=== PATIENT | male | born 1985 ===

== ENCOUNTER 2018-02-28 02:21 | Emergency (ER) | payer OTHER ==
--- NOTE | 2018-02-28 02:31 | C.PDOC ---
History Of Present Illness 32 year old male is brought in by EMS for alcohol intoxication. Patient denies SI/HI, hallucinations, CP, SOB, injury, fall, trauma. Time Seen by Provider: 02/28/18 02:30 History Per: Patient, EMS History/Exam Limitations: intoxication Onset/Duration Of Symptoms: Days Current Symptoms Are (Timing): Still Present Suicide/Self Injury Attempted (Context): None Modifying Factor(s): Alcohol Associated Symptoms: denies: Depression, Suicidal Thoughts, Suicidal Plan Recent travel outside of the [place]: No Additional History Per: Patient Past Medical History Reviewed: Historical Data, Nursing Documentation, Vital Signs - Medical History PMH: Depression, Fractures (Right Leg (rt foot/ankle)), HTN Denies: HIV, Chronic Kidney Disease, Seizures, Sexually Transmitted Disease Surgical History: No Surg Hx - [facility] Procedures CLOSURE SKIN & SUBCUTANEOUS NEC (10/13/13) LINEAR REP LID LACER (10/13/13) REPLAC M/S IMMOB DEV NEC (12/12/14) Family History: States: Unknown Family Hx - Social History Hx Tobacco Use: Yes (light smoker) Hx Alcohol Use: Yes Hx Substance Use: Yes (PCP) - Immunization History Hx Tetanus Toxoid Vaccination: No (unknown) Hx Influenza Vaccination: No (UTO) Hx Pneumococcal Vaccination: No (UTO) Review Of Systems Constitutional: Negative for: Fever, Chills Cardiovascular: Negative for: Chest Pain Respiratory: Negative for: Cough, Shortness of Breath Gastrointestinal: Negative for: Nausea, Vomiting, Abdominal Pain Skin: Negative for: Rash Psych: Negative for: Depression, Suicidal ideation Physical Exam - Physical Exam Appears: Non-toxic, No Acute Distress Skin: Warm, Dry Head: Normacephalic Eye(s): bilateral: Normal Inspection Oral Mucosa: Moist Neck: Supple Chest: Symmetrical Cardiovascular: Rhythm Regular Respiratory: No Rales, No Rhonchi, No Wheezing Gastrointestinal/Abdominal: Soft, No Tenderness, No Guarding, No Rebound Extremity: Bilateral: Atraumatic, Normal Color And Temperature, Normal ROM Neurological/Psych: Oriented x3, Normal Speech, Normal Cognition Gait: Steady ED Course And Treatment Pulse Ox Interpretation: Normal Reevaluation Time: 05:09 Reassessment Condition: Improved Disposition Counseled Patient/Family Regarding: Studies Performed, Diagnosis, Need For Followup - Disposition Referrals: [facility] [Outside] Disposition: HOME/ ROUTINE Disposition Time: 02:30 Condition: FAIR Instructions: Alcohol Abuse and Alcoholism (DC) - Clinical Impression Clinical Impression: Substance abuse - Scribe Statement The provider has reviewed the documentation as recorded by the Scribe Oneil Toledo All medical record entries made by the Scribe were at my direction and personally dictated by me. I have reviewed the chart and agree that the record accurately reflects my personal performance of the history, physical exam, medical decision making, and the department course for this patient. I have also personally directed, reviewed, and agree with the discharge instructions and disposition.
[2018-02-28 02:49] VITALS: BP 142/82; PULSE 100; RESP 22; TEMP 97.4; O2SAT 99
== END 2018-02-28 05:20 | disposition home or self-care (01) ==
LOC: MERGE 02:21 → C.ER 02:21
DX: F10.10 Alcohol abuse, uncomplicated (principal); Y90.9 Presence of alcohol in blood, level not specified

== ENCOUNTER 2018-03-03 03:39 | Emergency (ER) | payer OTHER ==
[2018-03-03 04:17] VITALS: BP 128/76; PULSE 82; RESP 20; TEMP 98; O2SAT 98
== END 2018-03-03 04:10 | disposition left against medical advice (07) ==
LOC: C.ER 03:39 → MERGE 03:39 → C.ER 04:10
DX: Z02.89 Encounter for other administrative examinations (principal); M25.579 Pain in unspecified ankle and joints of unspecified foot

== ENCOUNTER 2018-03-14 12:26 | Emergency (ER) | payer MEDICAID, OTHER ==
[2018-03-14 12:33] VITALS: O2SAT 100
--- NOTE | 2018-03-14 13:27 | C.PDOC ---
History Of Present Illness 32 y/o male BIBA for evaluation of public intoxication after he was found vomiting on the street. Patient admits that he was drinking ETOH. Patient denies having suicidal ideation, homicidal ideation, and active physical complaints. Time Seen by Provider: 03/14/18 12:44 Chief Complaint (Nursing): Substance Abuse History Per: Patient History/Exam Limitations: no limitations Past Medical History Reviewed: Historical Data, Nursing Documentation, Vital Signs Vital Signs: Last Vital Signs Temp 98.7 F 03/14/18 12:30 Pulse 86 03/14/18 12:30 Resp 14 03/14/18 12:30 BP 158/64 H 03/14/18 12:30 Pulse Ox 100 03/14/18 12:30 - Medical History PMH: Depression, Fractures (Right Leg (rt foot/ankle)) Denies: Diabetes, Hepatitis, HIV, HTN, Chronic Kidney Disease, Seizures, Sexually Transmitted Disease Other Surgeries: Hx of surgeries - [facility] Procedures CLOSURE SKIN & SUBCUTANEOUS NEC (10/13/13) LINEAR REP LID LACER (10/13/13) REPLAC M/S IMMOB DEV NEC (12/12/14) Family History: States: No Known Family Hx - Social History Hx Tobacco Use: Yes (light smoker) Hx Alcohol Use: Yes Hx Substance Use: Yes - Immunization History Hx Tetanus Toxoid Vaccination: No (unknown) Hx Influenza Vaccination: No (UTO) Hx Pneumococcal Vaccination: No (UTO) Review Of Systems Except As Marked, All Systems Reviewed And Found Negative. Constitutional: Negative for: Fever, Chills Gastrointestinal: Negative for: Nausea, Vomiting, Abdominal Pain Physical Exam - Physical Exam Appears: No Acute Distress, Other (resting comfortably) Skin: Normal Color, Warm, Dry Head: Atraumatic, Normacephalic Eye(s): bilateral: Normal Inspection Nose: Normal Oral Mucosa: Moist, Other (ETOH on breath) Neck: Supple Chest: Symmetrical Cardiovascular: Rhythm Regular Respiratory: Normal Breath Sounds, No Rales, No Rhonchi, No Wheezing Gastrointestinal/Abdominal: Soft, No Tenderness, No Guarding, No Rebound Neurological/Psych: Oriented x3, Normal Speech ED Course And Treatment O2 Sat by Pulse Oximetry: 100 (RA) Pulse Ox Interpretation: Normal Medical Decision Making Medical Decision Making: Assessment: ETOH Intoxication Plan: --Glucose, POC patient awake, ambulating without difficulties, patient discharged home to follow up with pmd within 2 days Disposition Counseled Patient/Family Regarding: Studies Performed, Diagnosis - Disposition Referrals: [facility] [Outside] Disposition: HOME/ ROUTINE Disposition Time: 15:16 Condition: STABLE Additional Instructions: follow up with medical clinic within 2 days call to make an appointment stop drinking return to ER if symptoms worsens or progress Instructions: Alcohol Abuse and Alcoholism (DC) Forms: [facility] (Lao), General Discharge Instructions - Clinical Impression Clinical Impression: Alcohol abuse - Scribe Statement The provider has reviewed the documentation as recorded by the Harshil Bartholomew Provider Attestation: All medical record entries made by the Harshil were at my direction and personally dictated by me. I have reviewed the chart and agree that the record accurately reflects my personal performance of the history, physical exam, medical decision making, and the department course for this patient. I have also personally directed, reviewed, and agree with the discharge instructions and disposition.
[2018-03-14 15:18] VITALS: BP 124/87; PULSE 99; RESP 18; TEMP 97.7
== END 2018-03-14 15:27 | disposition home or self-care (01) ==
LOC: C.ER 12:26
DX: F10.129 Alcohol abuse with intoxication, unspecified (principal); Z87.891 Personal history of nicotine dependence

== ENCOUNTER 2018-03-16 08:56 | Emergency (ER) | payer OTHER ==
[2018-03-16 09:03] VITALS: TEMP 98.4
[2018-03-16] MEDS ORDERED: Sodium Chloride 0.9% 1,000 ML IV ONE (09:32)
[2018-03-16 09:55] LABS: HEMOGLOBIN 12.7 g/dL (12.0-18.0); MEAN CORPUSCULAR HEMOGLOBIN 31.8 pg (27.0-31.0); MEAN CORPUSCULAR HGB CONC 33.4 g/dL (33.0-37.0); RBC 3.98 Mil/uL (4.40-5.90); RED CELL DISTRIBUTION WIDTH 12.9 % (11.5-14.5); WHITE BLOOD COUNT 5.3 K/uL (4.8-10.8)
[2018-03-16 09:56] LABS: BASO % 0.9 % (0.0-2.0); EOS # 0.1 K/uL (0.0-0.7); EOS % 1.3 % (0.0-4.0); LYMPH % 19.6 % (20.0-40.0); MEAN PLATELET VOLUME 7.8 fL (7.2-11.7); MONO # 0.5 K/uL (0.0-0.8); MONO % 9.3 % (0.0-10.0); NEUT # 3.7 K/uL (1.8-7.0); NEUT % 68.9 % (50.0-75.0); NRBC % 0.1 % (0.0-2.0)
[2018-03-16 09:57] LABS: MEAN CELL VOLUME 95.3 fL (80.0-94.0)
--- NOTE | 2018-03-16 10:06 | C.PDOC ---
History Of Present Illness 32 years old male with PMHx of drug abuse is brought to ED by police for bizzare behavior. Patient was brought to ED in hand cuffs but he is calm and cooperative. Patient denies drug use. Time Seen by Provider: 03/16/18 08:59 Chief Complaint (Nursing): Substance Abuse History Per: Patient History/Exam Limitations: no limitations Onset/Duration Of Symptoms: Hrs Current Symptoms Are (Timing): Still Present Suicide/Self Injury Attempted (Context): None Associated Symptoms: denies: Suicidal Thoughts, Suicidal Plan Involuntary Hold By: None Recent travel outside of the [place]: No Past Medical History Reviewed: Historical Data, Nursing Documentation, Vital Signs Vital Signs: Last Vital Signs Temp 98.4 F 03/16/18 09:02 Pulse 92 H 03/16/18 09:02 Resp 15 03/16/18 09:02 BP 136/78 03/16/18 09:02 Pulse Ox 97 03/16/18 09:02 - Medical History PMH: Depression, Fractures (Right Leg (rt foot/ankle)) - [facility] Procedures CLOSURE SKIN & SUBCUTANEOUS NEC (10/13/13) LINEAR REP LID LACER (10/13/13) REPLAC M/S IMMOB DEV NEC (12/12/14) Family History: States: Unknown Family Hx - Social History Hx Tobacco Use: Yes (light smoker) Hx Alcohol Use: Yes Hx Substance Use: Yes - Immunization History Hx Tetanus Toxoid Vaccination: No (unknown) Hx Influenza Vaccination: No (UTO) Hx Pneumococcal Vaccination: No (UTO) Review Of Systems Constitutional: Negative for: Fever, Chills Gastrointestinal: Negative for: Nausea, Vomiting, Abdominal Pain, Diarrhea Skin: Negative for: Rash Neurological: Negative for: Weakness, Numbness Psych: Negative for: Suicidal ideation Physical Exam - Physical Exam Appears: Non-toxic, No Acute Distress, Other (Calm. Cooperative. Lethargic but arousable. ) Skin: Normal Color, Warm, Dry, No Rash Head: Atraumatic, Normacephalic Eye(s): bilateral: Normal Inspection, PERRL, EOMI Oral Mucosa: Moist Neck: Normal ROM, Supple Chest: Symmetrical, No Tenderness Cardiovascular: Rhythm Regular, No Murmur Respiratory: Normal Breath Sounds, No Rales, No Rhonchi, No Wheezing Gastrointestinal/Abdominal: Soft, No Tenderness Extremity: Normal ROM Extremity: Bilateral: Atraumatic, Normal Color And Temperature, Normal ROM Pulses: Left Radial: Normal, Right Radial: Normal Neurological/Psych: Oriented x3, Normal Speech Gait: Steady ED Course And Treatment - Laboratory Results Result Diagrams: 03/16/18 09:52 03/16/18 09:52 O2 Sat by Pulse Oximetry: 97 (RA) Pulse Ox Interpretation: Normal Progress Note: Adminsitered IV Fluids. Ordered blood work and urinalysis. Adelita ent woke up, requesting IV to be removed immediately and left Ed w/o completing his evaluation. 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 - Scribe Statement The provider has reviewed the documentation as recorded by the Scribe Ivet Meeks All medical record entries made by the Scribe were at my direction and personally dictated by me. I have reviewed the chart and agree that the record accurately reflects my personal performance of the history, physical exam, medical decision making, and the department course for this patient. I have also personally directed, reviewed, and agree with the discharge instructions and disposition.
[2018-03-16 10:10] LABS: ALB/GLOB RATIO 1.4 (1.0-2.1); ALBUMIN 4.5 g/dL (3.5-5.0); ALT/SGPT 41 U/L (21-72); AST/SGOT 59 U/L (17-59); BLOOD UREA NITROGEN 12 mg/dL (9-20); CALCIUM 8.9 mg/dl (8.6-10.4); GFR NON-AFRICAN AMERICAN > 60
[2018-03-16 10:40] VITALS: BP 123/65; PULSE 88; RESP 12
[2018-03-16 10:56] LABS: GRANULAR CAST 2 /lpf (0-1); SQUAMOUS EPITHIAL < 1 /hpf (0-5); URINE BACTERIA RARE (<OCC); URINE BILIRUBIN NEGATIVE (NEGATIVE); URINE BLOOD NEGATIVE (NEGATIVE); URINE CLARITY Clear (Clear); URINE COLOR Yellow (YELLOW); URINE GLUCOSE (UA) NORMAL (Normal); URINE LEUKOCYTE ESTERASE NEG Leu/uL (Negative); URINE PROTEIN 2+ mg/dL (NEGATIVE)
[2018-03-16 11:23] LABS: BARBITURATES, UR NEGATIVE (NEGATIVE)
[2018-03-16 11:24] LABS: OPIATES, UR NEGATIVE (NEGATIVE)
[2018-03-16 11:25] LABS: BENZODIAZEPINES, UR POSITIVE (NEGATIVE)
[2018-03-16 11:33] LABS: PHENCYCLIDINE, UR POSITIVE (NEGATIVE)
[2018-03-16 16:18] VITALS: O2SAT 97
== END 2018-03-16 10:20 | disposition left against medical advice (07) ==
LOC: C.ER 08:56
DX: F19.10 Other psychoactive substance abuse, uncomplicated (principal)
CPT/HCPCS: 80053; 80320; 80324; 80345; 80346; 80349; 80353; 80358; 80361; 81001; 82948; 83735; 83992; 84100; 85025; 96360; 99283; J7030

== ENCOUNTER 2018-03-17 14:09 | Emergency (ER) | payer OTHER ==
[2018-03-17 14:31] VITALS: TEMP 98
--- NOTE | 2018-03-17 15:00 | C.PDOC ---
History Of Present Illness The patient presents to the ED for evaluation of left-sided testicular pain which has been present on and off for years. Patient was evaluated in this ED yesterday for intoxication and states they did not check him. Patient admits to taking drugs PCP. Denies recent trauma, fever, chills, abdominal pain, dysuria, penile discharge, rash, testicular swelling. Time Seen by Provider: 03/17/18 14:39 Chief Complaint (Nursing): Male Genitourinary History Per: Patient History/Exam Limitations: no limitations Onset/Duration Of Symptoms: Intermittent Episodes (for several years) Current Symptoms Are (Timing): Still Present Reports Recently: Seen In ED Recent travel outside of the [place]: No Additional History Per: Patient Past Medical History Reviewed: Historical Data, Nursing Documentation, Vital Signs Vital Signs: Last Vital Signs Temp 98 F 03/17/18 14:28 Pulse 77 03/17/18 14:28 Resp 20 03/17/18 14:28 BP 103/68 03/17/18 14:28 Pulse Ox 100 03/17/18 14:28 - Medical History PMH: Depression, Fractures (Right Leg (rt foot/ankle)) Denies: Diabetes, Hepatitis, HIV, HTN, Chronic Kidney Disease, Seizures, Sexually Transmitted Disease Surgical History: No Surg Hx - [facility] Procedures CLOSURE SKIN & SUBCUTANEOUS NEC (10/13/13) LINEAR REP LID LACER (10/13/13) REPLAC M/S IMMOB DEV NEC (12/12/14) Family History: States: Unknown Family Hx - Social History Hx Tobacco Use: Yes (light smoker) Hx Alcohol Use: Yes Hx Substance Use: Yes - Immunization History Hx Tetanus Toxoid Vaccination: No (unknown) Hx Influenza Vaccination: No (UTO) Hx Pneumococcal Vaccination: No (UTO) Review Of Systems Constitutional: Negative for: Fever, Chills Cardiovascular: Negative for: Chest Pain Respiratory: Negative for: Shortness of Breath Gastrointestinal: Negative for: Nausea, Vomiting, Abdominal Pain Genitourinary: Positive for: Scrotal Pain (left sided testicular ). Negative for: Dysuria, Penile Discharge, Other (testicular swelling ) Skin: Negative for: Rash Physical Exam - Physical Exam Appears: Non-toxic, No Acute Distress Skin: Warm, Dry, No Rash Head: No Atraumatic, No Normacephalic Eye(s): bilateral: Normal Inspection Oral Mucosa: Moist Neck: Normal ROM Chest: Symmetrical Cardiovascular: Rhythm Regular, No Murmur Respiratory: Normal Breath Sounds, No Rales, No Rhonchi, No Wheezing Gastrointestinal/Abdominal: Bowel Sounds, Soft, No Tenderness, No Guarding Male Genital: No Testicular Tenderness (or redness), No Testicular Swelling, No Inguinal Tenderness, No Inguinal Swelling, No Scrotal Swelling, Circumcised, No Other (discharge ) Extremity: Bilateral: Atraumatic, Normal Color And Temperature, Normal ROM Neurological/Psych: Oriented x3, Normal Speech Gait: Steady Additional Physical Exam Comments: 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 On exam there was no swelling, tenderness or redness. No signs of torsion or trauma. Prior records reviewed, patient had other visits for similar complaints and normal US. Yesterdays visit had labs and urine done shows normal results, UDS +Benzo and PCP. Motrin given. Patient remained well in no acute distress and ambulatory without signs of discomfort. Disposition Counseled Patient/Family Regarding: Diagnosis, Need For Followup, Rx Given - Disposition Referrals: Татьяна Gonzales MD [Staff Provider] - Disposition: HOME/ ROUTINE Disposition Time: 15:04 Condition: GOOD Additional Instructions: Follow up with your primary medical doctor or clinic in 2-5 days for further evaluation. Take medications as prescribed. Return to the emergency department at any time if symptoms persist or worsen. Prescriptions: Ibuprofen [Motrin] 600 mg PO Q8 #30 tab Instructions: Groin Strain Forms: [facility] (Welsh) - POA Present On Arrival: None - Clinical Impression Clinical Impression: Substance abuse, Chronic groin pain - PA / UNLOADER OPERATOR / Resident Statement MD/DO has reviewed & agrees with the documentation as recorded. - Scribe Statement The provider has reviewed the documentation as recorded by the Harshil Vargas All medical record entries made by the Kashmiribyemi were at my direction and personally dictated by me. I have reviewed the chart and agree that the record accurately reflects my personal performance of the history, physical exam, medical decision making, and the department course for this patient. I have also personally directed, reviewed, and agree with the discharge instructions and disposition.
[2018-03-17 15:52] VITALS: BP 110/72; PULSE 78; RESP 18
[2018-03-17 18:42] VITALS: O2SAT 100
== END 2018-03-17 15:52 | disposition home or self-care (01) ==
LOC: C.ER 14:09
DX: F19.10 Other psychoactive substance abuse, uncomplicated (principal); R10.30 Lower abdominal pain, unspecified

== ENCOUNTER 2018-03-22 21:24 | Emergency (ER) | payer OTHER ==
--- NOTE | 2018-03-22 21:45 | C.PDOC ---
History Of Present Illness 32 year old male is brought to the ED by EMS for public intoxication. Patient admits to using PCP and alcohol today. Patient denies SI/HI, hallucinations, CP, SOB, injury, fall, trauma. Time Seen by Provider: 03/22/18 21:45 Chief Complaint (Nursing): Substance Abuse History Per: Patient, EMS History/Exam Limitations: intoxication Onset/Duration Of Symptoms: Hrs Current Symptoms Are (Timing): Still Present Suicide/Self Injury Attempted (Context): None Modifying Factor(s): Alcohol, Narcotics Associated Symptoms: denies: Depression, Suicidal Thoughts, Suicidal Plan Recent travel outside of the [place]: No Additional History Per: Patient, EMS Past Medical History Reviewed: Historical Data, Nursing Documentation, Vital Signs - Medical History PMH: Depression, Fractures (Right Leg (rt foot/ankle)) Denies: Diabetes, Hepatitis, HIV, HTN, Chronic Kidney Disease, Seizures, Sexually Transmitted Disease Surgical History: No Surg Hx - [facility] Procedures CLOSURE SKIN & SUBCUTANEOUS NEC (10/13/13) LINEAR REP LID LACER (10/13/13) REPLAC M/S IMMOB DEV NEC (12/12/14) Family History: States: Unknown Family Hx - Social History Hx Tobacco Use: Yes (light smoker) Hx Alcohol Use: Yes Hx Substance Use: Yes - Immunization History Hx Tetanus Toxoid Vaccination: No (unknown) Hx Influenza Vaccination: No (UTO) Hx Pneumococcal Vaccination: No (UTO) Review Of Systems Constitutional: Negative for: Fever, Chills Respiratory: Negative for: Cough, Shortness of Breath Gastrointestinal: Negative for: Nausea, Vomiting, Abdominal Pain Skin: Negative for: Rash Psych: Negative for: Depression, Suicidal ideation Physical Exam - Physical Exam Appears: Non-toxic, No Acute Distress Skin: Warm, Dry Head: Normacephalic Eye(s): bilateral: Normal Inspection Neck: Supple Chest: Symmetrical Cardiovascular: Rhythm Regular Respiratory: No Rales, No Rhonchi, No Wheezing Gastrointestinal/Abdominal: Soft, No Tenderness, No Guarding, No Rebound Extremity: Bilateral: Atraumatic, Normal Color And Temperature, Normal ROM Neurological/Psych: Oriented x3, Normal Speech, Normal Cognition Gait: Steady ED Course And Treatment O2 Sat by Pulse Oximetry: 99 Pulse Ox Interpretation: Normal Reevaluation Time: 04:46 Reassessment Condition: Improved Disposition Counseled Patient/Family Regarding: Studies Performed, Diagnosis, Need For Followup - Disposition Referrals: [facility] [Outside] Disposition: HOME/ ROUTINE Disposition Time: 21:45 Condition: FAIR Instructions: Polysubstance Abuse (DC) Forms: [facility] (Macanese) - Clinical Impression Clinical Impression: Substance abuse - Scribe Statement The provider has reviewed the documentation as recorded by the Scribe Oneil Toledo All medical record entries made by the Scribe were at my direction and personally dictated by me. I have reviewed the chart and agree that the record accurately reflects my personal performance of the history, physical exam, medical decision making, and the department course for this patient. I have also personally directed, reviewed, and agree with the discharge instructions and disposition.
[2018-03-23 04:59] VITALS: BP 108/66; PULSE 87; RESP 18; TEMP 97.9; O2SAT 97
== END 2018-03-23 05:01 | disposition home or self-care (01) ==
LOC: C.ER 21:24
DX: F19.10 Other psychoactive substance abuse, uncomplicated (principal); F17.210 Nicotine dependence, cigarettes, uncomplicated

== ENCOUNTER 2018-04-15 22:25 | Emergency (ER) | payer SELFPAY ==
[2018-04-15 22:38] VITALS: RESP 20
--- NOTE | 2018-04-15 23:05 | C.PDOC ---
History Of Present Illness 32 year old male is brought to the ED by EMS for public intoxication. Patient with many prior evaluation for the same presentation. Patient denies SI/HI, hallucinations, injury, fall, trauma. Time Seen by Provider: 04/15/18 23:01 Chief Complaint (Nursing): Substance Abuse History Per: Patient, EMS History/Exam Limitations: intoxication Onset/Duration Of Symptoms: Hrs Current Symptoms Are (Timing): Still Present Suicide/Self Injury Attempted (Context): None Modifying Factor(s): Alcohol Associated Symptoms: denies: Depression, Suicidal Thoughts, Suicidal Plan Recent travel outside of the [place]: No Additional History Per: Patient, EMS Past Medical History Reviewed: Historical Data, Nursing Documentation, Vital Signs Vital Signs: Last Vital Signs Temp 98.3 F 04/15/18 22:36 Pulse 80 04/15/18 22:36 Resp 20 04/15/18 22:36 BP 121/75 04/15/18 22:36 Pulse Ox 98 04/15/18 22:36 - Medical History PMH: Depression, Fractures (Right Leg (rt foot/ankle)) Denies: Diabetes, Hepatitis, HIV, HTN, Chronic Kidney Disease, Seizures, Sexually Transmitted Disease Surgical History: No Surg Hx - [facility] Procedures CLOSURE SKIN & SUBCUTANEOUS NEC (10/13/13) LINEAR REP LID LACER (10/13/13) REPLAC M/S IMMOB DEV NEC (12/12/14) Family History: States: Unknown Family Hx - Social History Hx Tobacco Use: Yes (light smoker) Hx Alcohol Use: Yes Hx Substance Use: No - Immunization History Hx Tetanus Toxoid Vaccination: No (unknown) Hx Influenza Vaccination: No (UTO) Hx Pneumococcal Vaccination: No (UTO) Review Of Systems Constitutional: Negative for: Fever, Chills Eyes: Negative for: Vision Change Cardiovascular: Negative for: Chest Pain Respiratory: Negative for: Shortness of Breath Gastrointestinal: Negative for: Nausea, Vomiting, Abdominal Pain Skin: Negative for: Rash Psych: Negative for: Depression, Suicidal ideation Physical Exam - Physical Exam Appears: Non-toxic, No Acute Distress Skin: Normal Color, Warm, Dry Head: Atraumatic, Normacephalic Eye(s): bilateral: Normal Inspection Neck: Normal ROM, Supple Chest: Symmetrical Cardiovascular: Rhythm Regular Respiratory: Normal Breath Sounds, No Rales, No Rhonchi, No Wheezing Gastrointestinal/Abdominal: Soft, No Tenderness, No Guarding, No Rebound Extremity: Normal ROM, No Tenderness, No Swelling Neurological/Psych: Oriented x3, Normal Speech, Normal Cognition Gait: Steady ED Course And Treatment O2 Sat by Pulse Oximetry: 98 (On RA) Pulse Ox Interpretation: Normal Reevaluation Time: :16 Reassessment Condition: Improved (clincally sober, stable gait, plan to go home in an Uber) Medical Decision Making Medical Decision Making: alcohol abuse taking an Uber home Disposition Doctor Will See Patient In The: Office Counseled Patient/Family Regarding: Studies Performed, Diagnosis - Disposition Referrals: [facility] [Outside] [facility] [Outside] [employer] [facility] [Outside] [facility] [Outside] [place] [employer] [Outside] Disposition: HOME/ ROUTINE Disposition Time: :16 Condition: GOOD Instructions: Alcohol Use - When Is Drinking a Problem? Forms: [employer] (Belgian) - Clinical Impression Clinical Impression: Alcohol abuse - Scribe Statement The provider has reviewed the documentation as recorded by the Scribe Oneil Toledo All medical record entries made by the Scribe were at my direction and personally dictated by me. I have reviewed the chart and agree that the record accurately reflects my personal performance of the history, physical exam, medical decision making, and the department course for this patient. I have also personally directed, reviewed, and agree with the discharge instructions and disposition.
[2018-04-16 01:26] VITALS: BP 121/76; PULSE 72; TEMP 98
[2018-04-16 02:14] VITALS: O2SAT 98
== END 2018-04-16 01:26 | disposition home or self-care (01) ==
LOC: C.ER 22:25
DX: F10.10 Alcohol abuse, uncomplicated (principal); Y90.9 Presence of alcohol in blood, level not specified

== ENCOUNTER 2018-04-16 19:36 | Emergency (ER) | payer SELFPAY ==
[2018-04-16 19:53] VITALS: O2SAT 100
[2018-04-16 20:25] VITALS: BP 100/70; PULSE 77; RESP 20; TEMP 97.9
--- NOTE | 2018-04-17 00:27 | C.PDOC ---
History Of Present Illness 32 year old male is brought to the ED by EMS. [place]. Patient denies drug or alcohol consumption. Time Seen by Provider: 04/16/18 19:45 Chief Complaint (Nursing): Substance Abuse History Per: Patient, EMS History/Exam Limitations: no limitations Onset/Duration Of Symptoms: Hrs Current Symptoms Are (Timing): Still Present Suicide/Self Injury Attempted (Context): None Modifying Factor(s): None Associated Symptoms: denies: Depression, Suicidal Thoughts, Suicidal Plan Recent travel outside of the [place]: No Additional History Per: Patient Past Medical History Reviewed: Historical Data, Nursing Documentation, Vital Signs Vital Signs: Last Vital Signs Temp 97.9 F 04/16/18 20:24 Pulse 77 04/16/18 20:24 Resp 20 04/16/18 20:24 BP 100/70 04/16/18 20:24 Pulse Ox 100 04/16/18 20:24 - Medical History PMH: Depression, Fractures (Right Leg (rt foot/ankle)) Denies: Diabetes, Hepatitis, HIV, HTN, Chronic Kidney Disease, Seizures, Sexually Transmitted Disease Surgical History: No Surg Hx - [facility] Procedures CLOSURE SKIN & SUBCUTANEOUS NEC (10/13/13) LINEAR REP LID LACER (10/13/13) REPLAC M/S IMMOB DEV NEC (12/12/14) Family History: States: Unknown Family Hx - Social History Hx Tobacco Use: Yes (light smoker) Hx Alcohol Use: Yes Hx Substance Use: Yes - Immunization History Hx Tetanus Toxoid Vaccination: No (unknown) Hx Influenza Vaccination: No (UTO) Hx Pneumococcal Vaccination: No (UTO) Review Of Systems Constitutional: Negative for: Fever, Chills Cardiovascular: Negative for: Chest Pain Respiratory: Negative for: Cough, Shortness of Breath Gastrointestinal: Negative for: Nausea, Vomiting, Abdominal Pain Skin: Negative for: Rash Neurological: Negative for: Weakness, Numbness Psych: Negative for: Depression, Suicidal ideation Physical Exam - Physical Exam Appears: Non-toxic, No Acute Distress Skin: Normal Color, Warm, Dry Head: Atraumatic, Normacephalic Eye(s): bilateral: Normal Inspection Neck: Normal ROM, Supple Chest: Symmetrical Cardiovascular: Rhythm Regular Respiratory: Normal Breath Sounds, No Rales, No Rhonchi Gastrointestinal/Abdominal: Soft, No Tenderness, No Guarding, No Rebound Extremity: Bilateral: Atraumatic, Normal Color And Temperature, Normal ROM Neurological/Psych: Oriented x3, Normal Speech, Normal Cognition Gait: Steady ED Course And Treatment O2 Sat by Pulse Oximetry: 100 (ON RA) Pulse Ox Interpretation: Normal Disposition - Disposition Referrals: Sharon Watson, [Non-Staff] - Disposition: HOME/ ROUTINE Disposition Time: 20:15 Condition: GOOD Additional Instructions: MABLE RAMOS, thank you for letting us take care of you today. The em ergency medical care you received today was directed at your acute symptoms. If you were prescribed any medication, please fill it and take as directed. It may take several days for your symptoms to resolve. Return to the Emergency Department if your symptoms worsen, do not improve, or if you have any other problems. Please contact your doctor or call one of the physicians/clinics you have been r eferred to that are listed on the Patient Visit Information form that is included in your discharge packet. Bring any paperwork you were given at discharge with you along with any medications you are taking to your follow up visit. Our treatment cannot replace ongoing medical care by a primary care provider outside of the emergency department. Thank you for allowing the [facility] team to be part of your care today. Follow up with your primary care doctor as needed. Forms: [employer] (Portuguese) - Clinical Impression Clinical Impression: Normal exam - Scribe Statement The provider has reviewed the documentation as recorded by the Scribe Oneil Toledo All medical record entries made by the Scribe were at my direction and personally dictated by me. I have reviewed the chart and agree that the record accurately reflects my personal performance of the history, physical exam, medical decision making, and the department course for this patient. I have also personally directed, reviewed, and agree with the discharge instructions and disposition.
== END 2018-04-16 20:24 | disposition home or self-care (01) ==
LOC: C.ER 19:36
DX: Z00.00 Encounter for general adult medical examination without abnormal findings (principal); F17.200 Nicotine dependence, unspecified, uncomplicated; F32.9 Major depressive disorder, single episode, unspecified